=== PATIENT | female | born 1980 | race Two or more races ===

== ENCOUNTER 2022-11-23 01:25 | Emergency (ER) | payer SELFPAY ==
[~2022-11-23] VITALS: Ht 162.6 cm; Wt 63.5 kg
--- NOTE | 2022-11-23 01:27 | NUR ---
PT BIBA TO [facility].
--- NOTE | 2022-11-23 01:50 | NUR ---
AN IV, #20 WAS STARTED IN PT'S L HAND, LABS DRAWN/ SENT TO LAB.
--- NOTE | 2022-11-23 02:00 | NUR ---
CHEST X RAY DONE AT BEDSIDE.
[2022-11-23 02:05] LABS: HEMATOCRIT 38.5 % (31.2-41.9); MEAN CORPUSCULAR HEMOGLOBIN 28.3 uug (24.7-32.8); PLATELET COUNT (AUTO) 288 K/uL (179-408)
[2022-11-23 02:16] LABS: CARBON DIOXIDE 23 mmol/L (21-32); CHLORIDE 104 mmol/L (98-107); CREATININE 0.6 mg/dL (0.6-1.3); GLUCOSE 103 mg/dL (74-106); POTASSIUM 3.6 mmol/L (3.5-5.1); UREA NITROGEN, BLOOD 10 mg/dL (7-18)
--- NOTE | 2022-11-23 02:25 | NUR ---
PT UP OOB AMB TO BR. URINE COLLECTED/ SENT TO THE LAB.
[2022-11-23 03:07] LABS: *URINE HCG, QUAL NEGATIVE (NEGATIVE)
--- NOTE | 2022-11-23 03:45 | NUR ---
PT A,A AND O X 4, VSS WITH NO CP, NO SOB AND NAD OBSERVED.Patient discharged to home in stable condition. Written and verbal after care instructions given. Patient verbalizes understanding of instructions. Stressed follow up or return to ER for worsening s/s. PT AMB OUT WITH STEADY GAIT.
[2022-11-23 03:53] VITALS: BP 103/62
== END 2022-11-23 03:45 | disposition home or self-care (01) ==
LOC: ER 01:27
DX: R07.89 Other chest pain (principal); R06.02 Shortness of breath
CPT/HCPCS: 36415; 71045; 84484; 84703; 85025; 93005; A4663